=== PATIENT | female | born 1965 | race African-American/Black ===

== ENCOUNTER → 2020-06-11 | Outpatient (CLI) | payer OTHER ==
--- NOTE | 2020-06-11 10:56 | RAD ---
Transabdominal pelvic ultrasound without comparison for post menopausal bleeding. Technique and findings: Real-time grayscale and color Doppler evaluation of the pelvic organs is performed from a transabdominal approach. The uterus is anteverted and measures 10.0 x 5.1 x 4.7 cm. No myometrial abnormalities are seen. Endometrium measures 4.5 mm in thickness and appears grossly unremarkable as well. No fluid within the uterus. The cervix is not well depicted from the transabdominal approach. The right ovary measures 2.3 x 2.1 x 1.6 cm and the left measures 2.2 x 2.2 x 1.7 cm. No parenchymal abnormalities of either ovary. Normal color flow to both ovaries. No free or loculated fluid collections in the pelvis. No adnexal masses. IMPRESSION: 1. No sonographically discernible abnormality of the pelvic organs. Electronically signed by: Juan Andrade MD (06/11/2020 10:54 AM) [id number]
--- NOTE | 2020-06-11 17:19 | RAD ---
DATE: 06/11/2020 9:22 AM EXAM: DIGITAL SCREEN BILAT W/CAD HISTORY: Screening COMPARISON: 08/22/2016 Bilateral full field craniocaudal and mediolateral oblique images were obtained using digital technique. This study was interpreted with the benefit of Computerized Aided Detection (CAD). FINDINGS: Breast Density: FATTY The Breast Parenchyma is primarily fatty replaced. Breast parenchyma level density A. No suspicious masses, microcalcifications or architectural distortion is present to suggest malignancy in either breast. The visualized axillae are unremarkable. IMPRESSION: No mammographic evidence of malignancy. BI-RADS CATEGORY: 1 NEGATIVE RECOMMENDED FOLLOW-UP: 12M 12 MONTH FOLLOW-UP Annual screening mammography is recommended, unless clinically indicated sooner based on symptoms or change in physical exam. PQRS compliance statement: Patient information was entered into a reminder system with a target due date for the next mammogram. Mammography is a sensitive method for finding small breast cancers, but it does not detect them all and is not a substitute for careful clinical examination. A negative mammogram does not negate a clinically suspicious finding and should not result in delay in biopsying a clinically suspicious abnormality. "Our facility is accredited by the [employer] Mammography Program."
== END | disposition home or self-care (01) ==
LOC: MAMMO 09:14
PROVIDERS: ATTEND Obstetrics & Gynecology
DX: Z12.31 Encounter for screening mammogram for malignant neoplasm of breast (principal); N95.0 Postmenopausal bleeding
CPT/HCPCS: 76856; 77067